=== PATIENT | male | born 1975 | race African-American/Black ===

== ENCOUNTER 2019-07-17 11:47 | Emergency (ER) | payer BC ==
[~2019-07-17] VITALS: Ht 175.3 cm; Wt 89.0 kg
[2019-07-17] MEDS ORDERED: ALBU6.7H9 IH (11:53)
[2019-07-17] MEDS ORDERED: IBUPROFEN 600MG TABLET PO ONE (13:15)
[2019-07-17] MEDS ORDERED: TRAMADOL 50MG TABLET PO ONE (13:15)
[2019-07-17 16:14] VITALS: BP 142/90
== END 2019-07-17 16:16 | disposition home or self-care (01) ==
LOC: ER 11:47
DX: R09.1 Pleurisy (principal); R07.89 Other chest pain; R05 Cough; J45.909 Unspecified asthma, uncomplicated; Z90.49 Acquired absence of other specified parts of digestive tract; Z98.890 Other specified postprocedural states
CPT/HCPCS: 36415; 71045; 84484; 93005; 99284